=== PATIENT | male | born 2000 | race Caucasian/White ===

== ENCOUNTER 2018-02-09 16:48 | Emergency (ER) | payer BC ==
[~2018-02-09] VITALS: Ht 180.3 cm; Wt 67.0 kg
[2018-02-09 16:54] VITALS: BP 135/65; PULSE 93; RESP 16; TEMP 98.3; O2SAT 100
--- NOTE | 2018-02-09 17:42 | RADRPT ---
EXAM DATE/TIME: 02/09/2018 17:07 [place] COMPARISON: No previous studies available for comparison. INDICATIONS : Pain from fall. MEDICAL HISTORY : None. SURGICAL HISTORY : None. ENCOUNTER: Initial ACUITY: 1 day PAIN SCORE: 5/10 LOCATION: Right foot, first digit. FINDINGS: On the AP and oblique views, there is linesr calcification seen adjacent to the distal medial and lat eral aspects of the first proximal phalanx. These have an appearance more typically seen after a prio r injury. Donor sites are not seen. However, only seen on the lateral view, there is some linear luce ncy at the plantar distal aspect of the first proximal phalanx. A nondisplaced fracture could have th is appearance. CONCLUSION: Possible fracturing at the distal plantar aspect of the first proximal phalanx only seen on the later al view. There are linear calcifications seen adjacent to the distal aspect of the first proximal pha lanx on the AP and oblique images which could potentially be from prior injury or unusual manifestati ons of a more acute injury although donor sites for these areas are not seen. Prasanna Yanez MD on February 09, 2018 at 17:29 Board Certified Radiologist. This report was verified electronically.
[2018-02-09] MEDS ORDERED: ACETAMINOPHEN/HYDROcodone 325 MG/5 MG TAB PO ONE (21:30)
[2018-02-09] MEDS ORDERED: IBUPROFEN 600 MG TAB PO ONE (21:30)
--- NOTE | 2018-02-09 21:34 | PD ---
HPI Chief Complaint: Musculoskeletal Complaint Time Seen by Provider: 21:21 Travel History International Travel<30 days: No Contact w/Intl Traveler<30days: No Traveled to known affect area: No History of Present Illness HPI 17-year-old white male presents emergency department with complaints of left foot pain [place]. He states that he had fallen off the skim board injuring his left great toe. He does not recall any pop or crack. He has not been able to bear complete weight on his foot because of pain. Symptoms are moderate. He is up-to-date with immunizations. He denies any injury to his head, neck or back. No focal numbness, tingling or weakness. PFSH Past Medical History Medical History: Denies Significant Hx Tetanus Vaccination: < 5 Years Past Surgical History Surgical History: No Previous Surgery Social History Alcohol Use: Yes Tobacco Use: Yes Allergies-Medications (Allergen,Severity, Reaction): Coded Allergies: No Known Allergies (Unverified , 02/09/18) Review of Systems Except as stated in HPI: all other systems reviewed are Neg Physical Exam Narrative GENERAL: This is a well-nourished, well-developed patient, in no apparent distress. SKIN: No rashes, ecchymoses or lesions. Warm and dry. HEAD: Atraumatic. Normocephalic. EYES: PERRL, EOMI, no discharge or injection. No scleral icterus. EARS: Clear NOSE: Nasal turbinates appear normal. THROAT: Mucosa pink and moist. Airway patent. NECK: Trachea midline. supple, moves head freely. LUNGS: Clear to auscultation. CV: Regular in rhythm. ABDOMEN: Soft nontender. EXT: No clubbing cyanosis on the dorsal surface. Patient's left foot reveals a superficial abrasion of the great toe. Patient complains of pain to the proximal phalanx and IP joint. He has slightly limited range of motion but grossly intact. No gross instability. Patient has intact sensation and good cap refill. There is no pain in the second through fifth toe. No forefoot pain. No pain in the heel or Achilles. Remainder of the extremities unremarkable. The right lower extremity as well as the upper extremities are unremarkable for acute bony tenderness or deformity. Data Data Last Documented VS Vital Signs Date Time Temp Pulse Resp B/P (MAP) Pulse Ox O2 Delivery O2 Flow Rate FiO2 02/09/18 16:54 98.3 93 16 135/65 (88) 100 Orders Orders Foot, Complete ([id number]) (02/09/18 ) Ice/Cold Pack (02/09/18 21:25) Splint Or Brace Apply/Monitor (02/09/18 21:25) Crutches (02/09/18 21:25) Acetamin-Hydrocod 325-5 Mg ([place] 5-325 (02/09/18 21:30) Ibuprofen (Motrin) (02/09/18 21:30) Ed Discharge Order (02/09/18 21:25) MDM Medical Decision Making Medical Screen Exam Complete: Yes Emergency Medical Condition: Yes Medical Record Reviewed: Yes Interpretation(s) Left great toe: There appears to be a fracture of the distal aspect of the proximal phalanx. Differential Diagnosis MDM: High Differential diagnoses: Fracture, sprain, strain, dislocation, contusion, neurovascular injury Narrative Course X-ray reveals a fracture of the great toe. Patient's placed in a Mccormack compression dressing as well as a postop shoe and he is given crutches. Motrin 600 mg p.o. and 1 [place] 5 mg's p.o. This is left great toe fracture. I have offered the patient a limited quantity of the narcotic pain medication which she has declined at this time. He has agreed to take 600 mg's of ibuprofen every 6 hours. Diagnosis Primary Impression: Left great toe fracture Referrals: Tita Suero [facility] 1 week Patient Instructions: Narcotic given in the ED, General Instructions Additional Instructions: Rest. Elevation. Ice packs for the next 3 days. Janak wrap and crutches. No weight-bearing and then progress to weight-bearing as tolerated. 3 Advil every 6 hours. Follow-up with pipe line gauger in 1 week. Call the office Sunday morning for an appointment. Return to the ER if any problems Med/Other Pt SpecificInfo: Orthopedic Instructions Disposition: 01 DISCHARGE HOME Condition: Abilio Somers Feb 09, 2018 21:34
== END 2018-02-09 21:58 | disposition home or self-care (01) ==
LOC: NEPD 16:48
DX: S92.412A Displaced fracture of proximal phalanx of left great toe, initial encounter for closed fracture (principal); W19.XXXA Unspecified fall, initial encounter; Y93.89 Activity, other specified; Y92.832 Beach as the place of occurrence of the external cause; Z72.0 Tobacco use
CPT/HCPCS: 73630; 99283; E0113; L3260